=== PATIENT | male | born 1970 | race Caucasian/White ===

== ENCOUNTER 2019-05-22 04:05 | Observation (INO) | payer OTHER ==
[~2019-05-22] VITALS: Ht 182.9 cm; Wt 135.0 kg
--- NOTE | ~2019-05-22 | DS ---
PATIENT:JENNIFER MORENO :68 MEDICAL RECORD: [id number] DISCHARGE SUMMARY ADMISSION DATE: 05/22/19 DISCHARGE DATE: 05/22/19 DIAGNOSES: 1. Gastroesophageal reflux disease. 2. Chest pain. HOSPITAL COURSE: Mr. Moreno presents with chest pain and GERD symptomatology. Troponins were normal. EKGs were normal. It was relieved with GI directed medication. At this time, we will treat him from a GI standpoint. No other cardiac workup or treatment is necessary. TRANSINT:[id number] Voice Confirmation ID: [id number] DOCUMENT ID: [id number] SAURABH DUNCAN MD CC: [id number] DICTATION DATE: 05/22/19 1100 WASTEWATER ANALYST LAB ANALYST: 05/23/19 1039 DIS IN 05/22/19 [facility] [address] [place] [address]
[2019-05-22] MEDS ORDERED: ZOLOFT25 MG PO (04:10)
[2019-05-22] MEDS ORDERED: LOTREL 5-40 MG1 EACH PO (04:10)
[2019-05-22 04:18] VITALS: BP 155/106
[2019-05-22 04:29] LABS: BASOPHILS 0.8 % (0-2); EOSINOPHILS 2.5 % (0-7); HEMATOCRIT 44.7 % (42.0-54.0); HEMOGLOBIN 15.1 g/dL (13.5-17.5); IMMATURE GRANULOCYTES 0.3 % (0-5); LYMPHOCYTES 32.1 % (15-50); MCH 29.4 pg (26.0-34.0); MCHC 33.8 g/dL (31.0-37.0); MEAN PLATELET VOLUME 9.3 fL (7.4-10.4); MONOCYTES 6.4 % (2-11); NEUTROPHILS 57.9 % (40-80); PLATELET COUNT 359 10x3/uL (130-400); RBC 5.14 10x6/uL (4.20-6.10); RDW 13.7 % (11.5-14.5)
[2019-05-22 04:40] LABS: APTT 29.1 SECONDS (22.8-39.4); INR 0.93 (0.85-1.17)
[2019-05-22 04:46] LABS: ALBUMIN 4.2 g/dL (3.4-5.0); ALKALINE PHOSPHATASE 82 U/L (46-116); ALT (SGPT) 41 U/L (10-68); BILIRUBIN - TOTAL 0.32 mg/dL (0.2-1.3); CALC OSMOLALITY 283 mosm/kg (275-300); CALCIUM 9.3 mg/dL (8.5-10.1); CARBON DIOXIDE 29.2 mmol/L (21.0-32.0); CHLORIDE - SERUM 103 mmol/L (98-107); CREATININE - SERUM 1.2 mg/dL (0.6-1.3); GLUCOSE 111 mg/dL (74-106); PROTEIN - SERUM 8.1 g/dL (6.4-8.2); SODIUM 141 mmol/L (136-145); UREA NITROGEN 18 mg/dL (7-18); eGFR NON AFRICAN AMERICAN 68 mL/min (90-120)
[2019-05-22 04:55] LABS: CKMB 2.1 U/L (0.0-3.6); CREATINE KINASE 176 UL (21-232); MAGNESIUM - SERUM 2.4 mg/dL (1.8-2.4); TROPONIN-I 0.023 ng/mL (0.000-0.060)
[2019-05-22 07:31] VITALS: BP 123/85; Ht 182.9 cm; Wt 135.0 kg
[2019-05-22 08:37] VITALS: BP 128/73
--- NOTE | 2019-05-22 10:36 | NUR ---
IV AND TELEMETRY DCD. DC PLANS GIVEN. UNDERSTANDING VOICED. ESCORTED TO CAR BY W/C.
--- NOTE | 2019-05-22 11:36 | HP ---
PATIENT: JENNIFER SHELTON MEDICAL RECORD: [id number] ACCOUNT: [id number] LOCATION:[address] : 68 ADMISSION DATE: 05/22/19 PCP: KIKI ARELLANO MD HISTORY AND PHYSICAL EXAMINATION DIAGNOSES: 1. Gastroesophageal reflux disease. 2. Chest pain. HISTORY OF PRESENT ILLNESS: This is a gentleman with no cardiac history, who just last night after he laid down had epigastric pain, burning in his mouth and a sour taste in his mouth. This progressed to chest pain. He presented to the Emergency Room and was admitted. He has had no further pain after GI-directed medication was given. PHYSICAL EXAMINATION: GENERAL APPEARANCE: Well-nourished, well-developed, appears stated age. Level of distress, comfortable. PSYCHIATRIC: Mental status, alert, normal affect. Orientation, oriented to time, place and person. EYES: Lids and conjunctiva, noninjected. No discharge, no pallor. ENT: Lips, teeth, gums, normal dentition. Oropharynx, no cyanosis, no pallor. NECK: Carotid arteries, bilateral normal upstroke, no bruits, no thrills. JUGULAR VEINS: No jugular venous pressure or distention. CERVICAL LYMPH NODES: Nontender, nonenlarged. THYROID: Not enlarged. Nontender. No nodules. LUNGS: Respiratory effort, unlabored. CHEST: Normal curvature. No thoracic deformity. No chest wall tenderness. Percussion, resonant. Auscultation, clear. No wheezes, no rales, no rhonchi. CARDIOVASCULAR: Precordial exam, nondisplaced. No heaves or pericardial thrills. Rate and rhythm, regular. Heart sounds, normal S1, normal S2. No S3, no gallop, no rub. Systolic murmur, not heard. Diastolic murmur, not heard. EXTREMITIES: No cyanosis, no edema. Peripheral pulses, full and equal in all extremities, except as noted. No bruits appreciated. ABDOMEN: Soft, nondistended. Normal aorta. No bruit. Nontender. No masses. Liver, nontender, no hepatomegaly. Spleen, nontender, no splenomegaly. MUSCULOSKELETAL: No joint tenderness. No joint swelling. No erythema. NEUROLOGICAL: Normal gait, normal strength, normal tone. SKIN: Warm and dry. OVERALL IMPRESSION: Chest pain. This is most likely gastroesophageal reflux disease and acid reflux. EKG is normal. Troponin is normal. No other cardiac workup is necessary. TRANSINT:[id number] Voice Confirmation ID: [id number] DOCUMENT ID: [id number] HISTORY AND PHYSICAL [id number] JENNIFER SHELTON, SAURABH HENNESSY at 1136 CC: [id number] DICTATION DATE: 05/22/19 1100 RED HAT OPEN STACK ADMINISTRATOR: 05/22/19 1115 DIS IN 05/22/19 [place] [id number] [place] [id number]
== END 2019-05-22 10:37 | disposition home or self-care (01) ==
LOC: D.ER 04:05 → OBSVTIME 04:25 → D.M2 04:25
PROVIDERS: Family Medicine; ADMIT Internal Medicine Interventional Cardiology; ATTEND Internal Medicine Interventional Cardiology
DX: K21.9 Gastro-esophageal reflux disease without esophagitis (principal); R07.9 Chest pain, unspecified